=== PATIENT | female | born 1960 | race Caucasian/White ===

== ENCOUNTER 2018-06-14 05:17 | Day surgery (SDC) | payer OTHER ==
[2018-06-14] MEDS ORDERED: LISINOPRIL30 MG PO (09:26)
[2018-06-14] MEDS ORDERED: HYDROCHLOROTH12.5 M1 PO (09:26)
[2018-06-14] MEDS ORDERED: FOLIC ACID1 MG PO (09:27)
[2018-06-14] MEDS ORDERED: TOPROL XL50 M1 PO (09:27)
[2018-06-14] MEDS ORDERED: ASA81 MG PO (09:27)
[2018-06-14] MEDS ORDERED: KEPPRA500 MG PO (09:27)
[2018-06-14] MEDS ORDERED: METFORMIN HCL500 MG PO (09:28)
[2018-06-14] MEDS ORDERED: LIPITOR40 MG PO (09:28)
[2018-06-14] MEDS ORDERED: ZANTAC300 MG PO (12:38)
[2018-06-14] MEDS ORDERED: ULTRACET PO (12:38)
[2018-06-14] MEDS ORDERED: AMOX1TAB5 PO (12:39)
== END 2018-06-14 18:10 | disposition home or self-care (01) ==
LOC: CIR.AMB 05:17
DX: K80.10 Calculus of gallbladder with chronic cholecystitis without obstruction (principal)